=== PATIENT | female | born 1955 | race Hispanic/Latino ===

== ENCOUNTER 2022-03-18 11:23 | Emergency (ER) | payer MEDICARE ==
[~2022-03-18] VITALS: Ht 157.5 cm; Wt 78.0 kg
[2022-03-18] MEDS ORDERED: ACETAMINOPHEN-1 EAC4 PEG (12:55)
[2022-03-18] MEDS ORDERED: ACYCLOVIR800 MG PO (12:55)
== END 2022-03-18 13:18 | disposition home or self-care (01) ==
LOC: ER 11:40
DX: B02.9 Zoster without complications (principal); I10 Essential (primary) hypertension; E11.9 Type 2 diabetes mellitus without complications; E78.5 Hyperlipidemia, unspecified
CPT/HCPCS: 99282